=== PATIENT | male | born 1955 | race American Indian/Alaskan Native ===

== ENCOUNTER 2017-04-09 13:50 | Emergency (ER) | payer OTHER ==
--- NOTE | 2017-04-09 14:02 | ED PDOC ---
Arrival/HPI - General Chief Complaint: Finger,Hand,&Wrist Time Seen by Provider: 04/09/17 13:58 Historian: Patient - History of Present Illness Narrative History of Present Illness (Text): 04/09/17 13:58 61 y/o male, pmh including htn/hyperlipidemia/dm, nkda, c/o rt. hand 3rd digit locking sensation x 3 weeks with no fall or trauma. Pt. stated that he has difficulty time to keep the 3rd digit finger straight, has to overly extend it with the other hand, no numbness or tingling, no dizziness, no night sweat, no other medical or psychological complaints. Past Medical History - Provider Review Nursing Documentation Reviewed: Yes - Cardiac Hx Cardiac Disorders: Yes Hx Hypertension: Yes - Pulmonary Hx Respiratory Disorders: No - Neurological Hx Neurological Disorder: No - HEENT Hx HEENT Disorder: No - Renal Hx Renal Disorder: No - Endocrine/Metabolic Hx Endocrine Disorders: Yes Hx Diabetes Mellitus Type 2: Yes - Hematological/Oncological Hx Blood Disorders: No - Integumentary Hx Dermatological Disorder: No - Musculoskeletal/Rheumatological Hx Musculoskeletal Disorders: Yes Other/Comment: neuropathy - Gastrointestinal Hx Gastrointestinal Disorders: No - Genitourinary/Gynecological Hx Genitourinary Disorders: No - Psychiatric Hx Psychophysiologic Disorder: No Hx Substance Use: No Family/Social History - Physician Review Nursing Documentation Reviewed: Yes Family/Social History: Unknown Family HX Smoking Status: Never Smoked Hx Alcohol Use: No Hx Substance Use: No Allergies/Home Meds Allergies/Adverse Reactions: Allergies No Known Allergies Allergy (Verified 04/09/17 13:56) Home Medications: Home Meds Medication Instructions Recorded Confirmed Olmesartan Medoxomil [Benicar] 75 mg PO DAILY 07/02/15 04/09/17 Pregabalin [Lyrica] 75 mg PO BID 07/02/15 04/09/17 Cholecalciferol [Vitamin D 1000 IU] 1,000 iu PO DAILY 04/09/17 04/09/17 Sitagliptin Phos/Metformin HCl 1 tab PO BID 04/09/17 04/09/17 [Janumet 50-1,000 mg Tablet] Review of Systems - Review of Systems Constitutional: absent: Fatigue Eyes: absent: Vision Changes ENT: absent: Hearing Changes Respiratory: absent: SOB, Cough Cardiovascular: absent: Chest Pain Gastrointestinal: absent: Abdominal Pain, Nausea, Vomiting Musculoskeletal: absent: Arthralgias, Back Pain, Neck Pain, Joint Swelling, Myalgias Neurological: absent: Headache, Dizziness Physical Exam Vital Signs Reviewed: Yes Vital Signs Temp Pulse Resp BP Pulse Ox 04/09/17 14:46 97 F L 83 20 136/71 99 04/09/17 13:52 98.4 F 85 18 144/78 98 Temperature: Afebrile Blood Pressure: Normal Pulse: Regular Respiratory Rate: Normal Appearance: Positive for: Well-Appearing, Non-Toxic, Comfortable Pain Distress: None Mental Status: Positive for: Alert and Oriented X 3 - Systems Exam Head: Present: Atraumatic, Normocephalic Pupils: Present: PERRL Extroacular Muscles: Present: EOMI Conjunctiva: Present: Normal Mouth: Present: Moist Mucous Membranes Neck: Present: Normal Range of Motion Respiratory/Chest: Present: Clear to Auscultation, Good Air Exchange. No: Respiratory Distress, Accessory Muscle Use Cardiovascular: Present: Regular Rate and Rhythm, Normal S1, S2. No: Murmurs Abdomen: Present: Normal Bowel Sounds. No: Tenderness, Distention, Peritoneal Signs Back: Present: Normal Inspection Upper Extremity: Present: Normal Inspection, Other (Rt. hand: 3rd digit PIPJ with triggered finger and locking when extension, FROM without limitation, sensation intact, motor 5/5, skin intact, no tenderness or swelling, FROM without limitation, sensation intact, motor 5/5, +radial pulse, capillary refill < 2 seconds, neurovascular intact. ). No: Cyanosis, Edema Lower Extremity: Present: Normal Inspection. No: Edema Neurological: Present: GCS=15, Speech Normal, Motor Func Grossly Intact, Gait Normal, Memory Normal Skin: Present: Warm, Dry, Normal Color. No: Rashes Psychiatric: Present: Alert, Oriented x 3, Normal Insight, Normal Concentration Medical Decision Making ED Course and Treatment: 04/09/17 14:14 -finger splint, xray -Discharge home with finger splint, motrin, ice compression, follow up with your own pmd and hand specialist within 2 days, return to the ER for any new or worsening signs or symptoms. - RAD Interpretation Radiology Orders: 04/09/17 14:02 HAND RIGHT 3RD DIGIT (FINGER) [RAD] Stat normal right hand radiographs. Performance Test Consultant: Radiologist - PA / REGISTERED NURSE CARDIAC / Resident Statement MD/DO has reviewed & agrees with the documentation as recorded. Disposition/Present on Arrival - Present on Arrival Any Indicators Present on Arrival: No History of DVT/PE: No History of Uncontrolled Diabetes: Yes Urinary Catheter: No History of Decub. Ulcer: No History Surgical Site Infection Following: None - Disposition Have Diagnosis and Disposition been Completed?: Yes Diagnosis: Trigger finger Disposition: HOME/ ROUTINE Disposition Time: 14:15 Patient Plan: Discharge Patient Problems: Current Active Problems Problem Status Onset Trigger finger Acute Condition: GOOD Additional Instructions: -Discharge home with finger splint, motrin, ice compression, follow up with your own pmd and hand specialist within 2 days, return to the ER for any new or worsening signs or symptoms. Prescriptions: Ibuprofen [Motrin] 400 mg PO QID PRN #24 tab PRN Reason: Other Referrals: Milena Benoit MD [Non-Staff] - Follow up with primary [facility] [place] [Outside] - Follow up with primary Forms: WORK NOTE
[2017-04-09 14:04] VITALS: BMI 46.7
[2017-04-09 14:47] VITALS: BP 136/71; PULSE 83; RESP 20; TEMP 97; O2SAT 99
--- NOTE | 2017-04-09 14:47 | RAD ---
PROCEDURE: Right Hand Radiographs. HISTORY: rt. hand 3rd PIPJ locking sensation COMPARISON: None. FINDINGS: BONES: Normal. No fracture. JOINTS: Normal. No osteoarthritic changes. SOFT TISSUES: Normal. OTHER FINDINGS: None. IMPRESSION: Normal right hand radiographs.
== END 2017-04-09 14:57 | disposition home or self-care (01) ==
LOC: ED 13:50
DX: M65.331 Trigger finger, right middle finger (principal); E78.5 Hyperlipidemia, unspecified; I10 Essential (primary) hypertension; E11.9 Type 2 diabetes mellitus without complications